=== PATIENT | female | born 1995 | race African-American/Black ===

== ENCOUNTER 2020-08-05 16:53 | Emergency (ER) | payer SELFPAY ==
[~2020-08-05] VITALS: Ht 170.2 cm; Wt 72.0 kg
[2020-08-05] MEDS ORDERED: SODIUM CHLORIDE 0.9% 1,000 ML IV ONE (17:45)
[2020-08-05 18:01] LABS: CHLORIDE 106 mEq/L (98-107)
[2020-08-05 18:05] LABS: BASOPHILS % 0.6 % (0.0-2.0); EOSINOPHILS % 0.8 % (0.0-5.0); HCG SCREEN NEGATIVE; HEMATOCRIT. 39.4 % (36.0-48.0); HEMOGLOBIN. 12.9 g/dL (12.0-16.0); LYMPHOCYTES % 18.7 % (20.0-50.0); MEAN CORPUSCULAR HEMOGLOBIN 28.4 pg (28.0-32.0); MEAN CORPUSCULAR VOLUME 86.3 fL (81.0-99.0); MEAN PLATELET VOLUME 6.9 fl (7.4-10.4); MONOCYTES % 6.1 % (2.0-8.0); NEUTROPHILS % 73.8 % (40.0-76.0); PLATELET 370 x1000/uL (130-400); RED BLOOD CELL COUNT 4.56 mill/uL (4.2-5.4); RED CELL DISTRIBUTION WIDTH 14.4 % (11.6-14.6)
[2020-08-05 18:07] LABS: ETHANOL BLOOD < 10 mg/dL
[2020-08-05 19:08] LABS: CLARITY URINE CLEAR (CLEAR); COLOR URINE YELLOW (YELLOW); KETONES URINE TRACE (NEGATIVE); LEUKOCYTE ESTERASE URINE TRACE (NEGATIVE); NITRITE URINE NEGATIVE (NEGATIVE); OCCULT BLOOD URINE NEGATIVE (NEGATIVE); PH URINE 6.5 (4.5-8.0); PROTEIN URINE NEGATIVE (NEGATIVE); SPECIFIC GRAVITY URINE 1.027 (1.005-1.030)
[2020-08-05 19:28] LABS: *BARBITURATES SCREEN URINE NEGATIVE (NEGATIVE); *BENZODIAZEPINES SCREEN URINE NEGATIVE (NEGATIVE); OPIATES URINE SCREEN NEGATIVE (NEGATIVE); PHENCYCLIDINE URINE SCREEN NEGATIVE (NEGATIVE)
[2020-08-05 19:29] LABS: *COCAINE SCREEN URINE NEGATIVE (NEGATIVE); METHADONE URINE SCREEN NEGATIVE (NEGATIVE)
[2020-08-05 19:37] LABS: *AMPHETAMINES SCREEN URINE PRESUMTIVE POSITIVE (NEGATIVE); CANNABINOID URINE SCREEN PRESUMTIVE POSITIVE (NEGATIVE)
[2020-08-05] MEDS ORDERED: LORAZEPAM 2MG/ML CPJ IV ONE (20:30)
[2020-08-05] MEDS ORDERED: HALOPERIDOL LACTATE 5MG/ML VIAL IM ONE (20:45)
[2020-08-06 09:37] VITALS: BP 93/77
== END 2020-08-06 17:46 | disposition home or self-care (01) ==
LOC: ER 16:53 → EDBD 16:53 → ER 08-06 17:46
DX: F15.129 Other stimulant abuse with intoxication, unspecified (principal)
CPT/HCPCS: 36415; 70450; 80053; 80305; 80307; 80320; 80329; 81003; 82962; 83735; 84703; 85025; 93005; 96372; 96374; 99285; J1630; J2060; J7030; G0480